=== PATIENT | male | born 1985 | race American Indian/Alaskan Native ===

== ENCOUNTER 2017-06-21 00:07 | Emergency (ER) | payer SELFPAY ==
[2017-06-21 00:46] VITALS: BP 133/96; PULSE 67; RESP 16; TEMP 98.4; O2SAT 98
[2017-06-21] MEDS ORDERED: DiphenhydrAMINE 50 mg/ml Inj IV STA (01:44)
--- NOTE | 2017-06-21 01:54 | ED PDOC ---
HPI: Allergic Reaction Time Seen by Provider: 06/21/17 01:08 Chief Complaint (Nursing): Allergic Reaction Additional Complaint(s): 31 yo male presents ED with c/o lower lip itching and swelling since 6 pm last night associated with left upper molar tooth pain x 1 week. Pt reports he was working at the [employer] when he saw his lower lip were swelling up. Denies eating any unusual food. Denies any hx food allergies or medications allergies. Pt took 2 aspirin and 2 advil yesterday morning and reports he took NSAIDS in the past with no problems. Denies rash, sore throat, dyspnea, wheezing, nausea , vomiting or abdominal pain. Denies any itching now. Denies cough, nasal congestion, chest pain or dizziness. PMD: Unable to recall Past Medical History Vital Signs: Last Vital Signs Temp 98.4 F 06/21/17 00:44 Pulse 67 06/21/17 00:44 Resp 16 06/21/17 00:44 BP 133/96 H 06/21/17 00:44 Pulse Ox 98 06/21/17 00:44 - Medical History PMH: Hypothyroidism (s/p iodine radiation tx 10 yrs ago) - Surgical History Surgical History: No Surg Hx - Family History Family History: States: CAD (mother), Diabetes (grandmother) - Social History Current smoker - smoking cessation education provided: No Alcohol: Social Drugs: Cannabis (occasionally) - Home Medications Home Medications: Ambulatory Orders Medication Instructions Recorded Levothyroxine [Synthroid] 75 mcg PO QAM #14 tab 06/21/17 predniSONE [predniSONE Tab] 60 mg PO QAM #12 tab 06/21/17 - Allergies Allergies/Adverse Reactions: Allergies Allergy/AdvReac Type Severity Reaction Status Date / Time No Known Allergies Allergy Verified 06/21/17 00:43 Review of Systems Constitutional: Negative for: Fever, Chills ENT: Negative for: Ear Pain, Throat Pain, Throat Swelling Cardiovascular: Negative for: Chest Pain Respiratory: Negative for: Cough, Shortness of Breath, Wheezing Gastrointestinal: Negative for: Nausea, Vomiting, Abdominal Pain Genitourinary Male: Negative for: Dysuria Skin: Negative for: Rash Neurological: Negative for: Weakness, Numbness, Headache, Dizziness Physical Exam - Physical Exam Appears: Negative for: Non-toxic, No Acute Distress Skin: Negative for: Diaphoresis Eye Exam: Positive for: Normal appearance ENT: Positive for: Pharynx Is (uvula is midline with mild edema. No tonsillar edema or exudate. Left upper 3rd molar teeth is inward indented with black discoloration. No pus or swelling seen.), Other (Edema of lower lip ( Right side >Left side), no upper lip swelling) Neck: Positive for: Normal Cardiovascular/Chest: Positive for: Regular Rate, Rhythm Respiratory: Positive for: Normal Breath Sounds. Negative for: Wheezing, Respiratory Distress Gastrointestinal/Abdominal: Positive for: Normal Exam, Bowel Sounds, Soft. Negative for: Tenderness Neurologic/Psych: Positive for: Alert, sales store checker II-XII, Oriented. Negative for: Motor/Sensory Deficits, Facial Droop - Laboratory Results Result Diagrams: 06/21/17 02:49 06/21/17 02:49 Interpretation Of Abnormal: TSH: 45 - ECG O2 Sat by Pulse Oximetry: 98 - Progress ED Course And Treament: Assessment: 31 yo male presents to ED w/ c/o lower lip swelling since last night associated with left upper molar tooth pain x 1 week. Plan: Solumedrol 125 mg IVP Benadryl 50 mg IVP CBC CMP TSH Re-evaluate Case d/w ED attending Dr. Dalal Re-evaluation at 4:00 on 06/21/17 Pt's lower lip swelling has improved. Pt never had wheezing, dyspnea, sore throat, nausea or vomiting. Pt was advised to avoid NSAIDS for now until sees an [facility]. Pt is prescribed prednisone 60 mg po for 4 days. Also, advised to take benadryl 25-50mg qhs prn. Cautioned about SE. Advised to return to ED for worsening symptoms. Pt's TSH is 45. Pt reports he used to take 50 mcg but did not take it last 2.5 months. Pt is given 75 mcg of levothyroxine for 2 weeks and advised to f/u with [facility]. Pt verbalizes the understanding and agrees with plan. Case d/w ED attending Dr. Dalal Disposition - Clinical Impression Clinical Impression: Angioedema, Hypothyroid - Disposition Disposition Time: 04:05 Condition: STABLE Prescriptions: Levothyroxine [Synthroid] 75 mcg PO QAM #14 tab predniSONE [predniSONE Tab] 60 mg PO QAM #12 tab Instructions: Hypothyroidism (Underactive Thyroid), Angioedema Forms: [employer] ([place]ovenian)
[2017-06-21] MEDS ORDERED: DiphenhydrAMINE 50 mg/ml Inj ONE (02:35)
[2017-06-21 02:58] LABS: BASO % 0.6 % (0.0-2.0); EOS # 0.2 K/uL (0.0-0.7); EOS % 2.7 % (0.0-4.0); LYMPH # 2.2 K/uL (1.0-4.3); LYMPH % 32.4 % (20.0-40.0); MEAN CELL VOLUME 91.5 fl (80.0-94.0); MEAN CORPUSCULAR HEMOGLOBIN 31.7 pg (27.0-31.0); MEAN CORPUSCULAR HGB CONC 34.6 g/dL (33.0-37.0); MEAN PLATELET VOLUME 8.4 fl (7.2-11.7); MONO # 0.7 K/uL (0.0-0.8); NEUT # 3.7 K/uL (1.8-7.0); NEUT % 54.3 % (50.0-75.0); NRBC % 0.4 % (0.0-0.0); RBC 4.41 Mil/uL (4.40-5.90); RED CELL DISTRIBUTION WIDTH 13.1 % (11.5-14.5); WHITE BLOOD COUNT 6.7 K/uL (4.8-10.8)
[2017-06-21 03:04] LABS: ALB/GLOB RATIO 1.2 (1.0-2.1); ALBUMIN 4.1 g/dL (3.5-5.0); ALT/SGPT 54 U/L (21-72); AST/SGOT 64 U/L (17-59); BLOOD UREA NITROGEN 13 mg/dl (9-20); CALCIUM 8.7 mg/dL (8.4-10.2); GFR AFRICAN-AMERICAN > 60; GFR NON-AFRICAN AMERICAN > 60
== END 2017-06-21 06:54 | disposition home or self-care (01) ==
LOC: H.ER 00:07
DX: T78.40XA Allergy, unspecified, initial encounter (principal); E03.9 Hypothyroidism, unspecified
CPT/HCPCS: 80053; 84439; 84443; 85025; 96374; 99282; J1200; J2930